=== PATIENT | female | born 1955 | race Caucasian/White ===

== ENCOUNTER 2021-02-04 00:08 | Day surgery (SDC) | payer BC, SELFPAY ==
[2021-01-22 10:54] VITALS: BMI 35.3
--- NOTE | 2021-02-03 11:34 | PM.IMHP ---
H&P: HPI History of Present Illness Date/Time: 02/03/21 11:34Pt presents with left elbow pain that has been worsening over the recent months. Pt states her pain originated at the lateral elbow-region. Her pain is now radiating up into the deltoid-region and the posterior shoulder/neck. Her pain also radiates down into the lower left arm. She states all of the fingers on her left hand are numb/tingling, constantly. Her pain is exacerbated with driving/typing. This pain does wake her from sleep. She is wearing an OT wrist brace, which does help with her discomfort. She has a hx of a fracture to the radius/ulna, which required surgery, including an external fixator. In 2019 she was dx with a slipped disc in her cervical neck. She has not received treatment for that condition. Her ROM is currently slightly limited and painful. She takes Tylenol occasionally, for her pain. Chief Complaint: LEFT ELBOW AND HAND PAIN Review of Systems Review of Systems: All systems reviewed & are unremarkable except as noted in HPI and below Eyes: Eyes: Reports no additional eye complaints ENT: Reports system reviewed and no additional complaints, except as documented Gastrointestinal: Gastrointestinal: Reports no additional gastrointestinal complaints Genitourinary: Genitourinary: Reports no additional female genitourinary complaints Musculoskeletal: Musculoskeletal: Reports no additional musculoskeletal complaints Neurologic: Reports system reviewed and no additional complaints, except as documented [facility] Past Medical History Medical History Achilles tendinitis of right lower extremity Exostosis of right calcaneus Family History Family History Other Family history of cardiovascular disease Family history of malignant neoplasm Social History Social History Smoking packs per day: 0.5 Smoking cigarettes per day: 10.0 Years smoked: 20 Smoking pack-years: 10.00 Smoking status: Current every day smoker Tobacco type: cigarettes Alcohol intake: current Substance use: never Additional living arrangements comments: HUSB Spiritual care concerns: No Meds Home Medications and Allergies Home Medications Medication Instructions Recorded Confirmed Type betamethasone, augmented 1 applic TOPICAL BID PRN 01/22/21 01/22/21 History ergocalciferol (vitamin D2) 1,250 mcg PO WEEKLY 01/22/21 01/22/21 History Allergies Allergy/AdvReac Type Severity Reaction Status Date / Time No Known Allergies Allergy Verified 01/22/21 10:49 Exam Extrem: Left upper extremity: normal to inspection, full ROM, normal capillary refill, no joint enlargement, shoulder/upper arm inspection abnormal, tenderness, axillary nerve sensory function normal and normal ROM; no abrasions, no lacerations, no ecchymosis, no crepitus and no deformity, elbow/forearm tenderness of the medial epicondyle (CUBITAL TUNNEL), normal ROM and distal pulses intact; no swelling, no abrasions, no lacerations, no ecchymosis and no crepitus, wrist tenderness of the volar wrist, normal vascular exam, radial pulse present and ulnar pulse present and hand normal to inspection, normal capillary refill, neurosensory exam abnormal Details: ulnar nerve sensory function abnormal Details: decreased light touch sensation, vascular exam radial pulse present, ulnar pulse present and normal capillary refill; no cyanosis and normal ROM of fingers; no cyanosis and no edema Assessment and Plan Additional Plan ELKE IS SCHEDULED FOR LEFT CUBITAL TUNNEL AND CARPAL TUNNEL RELEASE. SHE IS CURRENTLY STILL SYMPTOMATIC. SHE CONTINUES TO HAVE PAIN. WE DISCUSSED SURGERY IN DETAIL PRIOR TO SCHEDULING. SHE WOULD LIKE TO PROCEED
--- NOTE | 2021-02-03 11:50 | WPDHPUPDATE1 ---
History and Physical Update Update Date/Time: 02/03/21 11:50 History and Physical has been reviewed, including an updated exam of the patient. There are NO changes in the patient's condition. Risks, benefits, and alternatives have been discussed and questions answered. Patient agrees to proceed with procedure.
[2021-02-04] VITALS (12 sets, daily range): BP systolic 110–144; BP diastolic 54–81; PULSE 44–73; RESP 12–16; TEMP 36.2–36.6; O2SAT 94–100
--- NOTE | 2021-02-04 10:33 | WPDHPUPDATE1 ---
History and Physical Update Update Date/Time: 02/04/21 10:33 History and Physical has been reviewed, including an updated exam of the patient. There are NO changes in the patient's condition. Risks, benefits, and alternatives have been discussed and questions answered. Patient agrees to proceed with procedure.
[2021-02-04] MEDS: ACETAMINOPHEN 500 MG TABLET 1000 MG PO (10:59)
[2021-02-04] MEDS: CELECOXIB 200 MG CAPSULE PO (11:00)
[2021-02-04] MEDS: LACTATED RINGERS 1,000 ML 30 ML IV CONT ×2 (11:02→14:09)
--- NOTE | 2021-02-04 11:56 | WPDANESEPPF ---
Anes - Initial Pre Proc Eval Procedure: Operation Date: 02/04/21 12:30 Proposed Procedures p Left Carpal Tunnel Release, Left Cubital Tunnel Release - Martin Adrian MD Date/Time: 02/04/21 11:56 Surgeon: Martin Adrian MD Pre Op Diagnosis: left cubital and left carpal tunnel syndrome Patient Data Age: 65 Gender: F Height: 1.52 m Weight: 80.85 kg Last Vital Signs Temp 36.6 C 02/04/21 10:41 Pulse 63 02/04/21 10:41 Resp 16 02/04/21 10:41 BP 113/79 02/04/21 10:41 Pulse Ox 97 02/04/21 10:41 Allergies Allergy/AdvReac Type Severity Reaction Status Date / Time No Known Allergies Allergy Verified 02/04/21 10:44 Home Medications Medication Instructions Recorded Confirmed Type betamethasone, augmented 1 applic TOPICAL BID PRN 01/22/21 01/22/21 History ergocalciferol (vitamin D2) 1,250 mcg PO WEEKLY 01/22/21 02/04/21 History rosuvastatin 10 mg PO DAILY 02/04/21 02/04/21 History Patient hx anesthesia problems: other (slow to awaken) Family hx anesthesia problems: none PMFSH Past Medical History Medical History Achilles tendinitis of right lower extremity Exostosis of right calcaneus Hyperlipidemia JUANI (obstructive sleep apnea) Family History Family History Other Family history of cardiovascular disease Family history of malignant neoplasm Social History Social History Smoking packs per day: 0.5 Smoking cigarettes per day: 10.0 Years smoked: 20 Smoking pack-years: 10.00 Smoking status: Current every day smoker Tobacco type: cigarettes Alcohol intake: current Substance use: never Living arrangements: with family Additional living arrangements comments: HUSB Spiritual care concerns: No Anes - Eval Final PreProcedure Day of Procedure 02/04/21 11:56 Patient weight: obese Heart: regular rate and rhythm Lungs: decreased breath sounds Airway: Mallampati scale class II Neurological: alert and oriented Last oral intake: >/= 8 hours ASA classification: III Emergent: no Anesthetic plan: proceed Anesthesia type and monitoring: general LMA and standard monitoring Informed Consent: The patient's anesthetic plan and its attendant risks and benefits were discussed with the patient/family/POA. Questions were solicited and answers provided to the satisfaction of the patient/family/POA.
[2021-02-04] MEDS: ceFAZolin 2 GM/D5W 50 ML 2 GM/50 ML BAG IVPB (12:38)
--- NOTE | 2021-02-04 14:35 | W.PM.PROC2 ---
Procedure Note - Detailed Date of Procedure 02/04/21 Pre-op Diagnosis left cubital and left carpal tunnel syndrome Post-op Diagnosis same Procedure Performed LEFT CUBITAL TUNNEL RELEASE AND LEFT CARPAL TUNNEL RELEASE Surgeon Martin Adrian MD Anesthesia general Description of Procedure THE PATIENT WAS TAKEN TO THE OPERATING ROOM AND PLACED UNDER GENERAL ANESTHESIA.THE LEFT UPPER EXTREMITY WAS PREPPED AND DRAPED IN THE STERILE FASHION. THE TOURNIQUET WAS INFLATED. THE CUBITAL TUNNEL WAS IDENTIFIED AT THE MEDIAL EPICONDYLE AND OLECRANON. AN INCISION WAS MADE THROUGH THE SKIN AND THROUGH THE SUBCUTANEOUS TISSUE UNTIL THE FASCIA WAS IDENTIFIED. THE ULNAR NERVE WAS PALPATED UNDER THE FASCIA. DISSECTION CONTINUED TILL THE ULNAR NERVE WAS IDENTIFIED AND THE RELEASE WAS PREFORMED BOTH PROXIMALLY TO DISTALLY TO THE LEVEL OF THE FCU FASCIA. ONCE THE RELEASE WAS COMPLETE THE WOUND WAS WASHED AND THEN APPROXIMATED IN MULTIPLE LAYERS. THE SKIN WAS THEN CLOSED WITH DERMABOND. NEXT, THE CARPAL TUNNEL WAS IDENTIFIED AND MARKED FROM THE FLEXED RING FINGER. AN INCISION WAS MADE AT THE MID PALM DOWN THROUGH THE SUBCUTANEOUS TISSUES. THE PALMAR FASCIA WAS IDENTIFIED. AN INCISION WAS MADE THROUGH THE PALMAR FASCIA UNTIL THE CARPAL TUNNEL WAS ENTERED. A MOSQUITO HEMOSTAT WAS USED TO PROTECT THE MEDIAN NERVE WHILE THE INCISION TO THE PALMAR FASCIA WAS COMPLETED PROXIMALLY AND DISTALLY TO THE CARDINAL LINE. NEXT, THE TRANSVERSE CARPAL LIGAMENT WAS IDENTIFIED. A FRIER ELEVATOR WAS USED TO SEPARATE THE NERVE FROM THE LIGAMENT. A METZENBAUM SCISSORS WAS THEN USED TO INCISE THE TRANSVERSE CARPAL LIGAMENT UNTIL THERE WAS A COMPLETE RELEASE OF THE CARPAL TUNNEL. THE MEDIAN NERVE WAS INTACT. THE TOURNIQUET WAS DEFLATED. THE BLEEDERS WERE CAUTERIZED. THE WOUND WAS WASHED. THE SKIN WAS APPROXIMATED WITH 4-0 NYLON SUTURE. STERILE DRESSING WAS APPLIED TO BOTH WRIST AND ELBOW. PATIENT WAS EXTUBATED AND SENT TO THE RECOVERY ROOM. Estimated Blood Loss 5 Complications No immediate complications Condition stable Disposition PACU
[2021-02-04] MEDS: fentaNYL CITRATE INJ (*CRX) 100 MCG/2 ML VIAL 25 MCG IV PUSH ×4 (14:37→14:53)
[2021-02-04] MEDS: oxyCODONE HCL (*CRX) 5 MG TAB IR PO (15:20)
== END 2021-02-04 16:41 | disposition home or self-care (01) ==
PROVIDERS: PCP Emergency Medicine; Visit Provider Orthopaedic Surgery
PROC: (CPT 64721; principal; 2021-02-04 12:30)
DX: G56.02 Carpal tunnel syndrome, left upper limb (principal); G56.22 Lesion of ulnar nerve, left upper limb; G47.33 Obstructive sleep apnea (adult) (pediatric); E78.5 Hyperlipidemia, unspecified; F17.210 Nicotine dependence, cigarettes, uncomplicated; E66.9 Obesity, unspecified; Z68.34 Body mass index [BMI] 34.0-34.9, adult
CPT/HCPCS: 64721; 64718; A9270; J0690; J1100; J2250; J2405; J2704; J3010; J7120

== ENCOUNTER → 2021-02-13 07:30 | Outpatient (CLI) | payer BC, SELFPAY ==
--- NOTE | ~2021-02-13 | MM_ITS ---
EXAMINATION: MM screening [facility] BI w simba HISTORY: Screening TECHNIQUE: Craniocaudal and mediolateral oblique 3-D tomosynthesis images were obtained and synthetic 2-D images were generated. CAD analysis was submitted and interpreted. COMPARISON: Comparison to multiple prior studies sequentially, with oldest reviewed study dated 11/23. BREAST PARENCHYMAL COMPOSITION: There are scattered areas of fibroglandular density. FINDINGS: There are benign bilateral breast calcifications. There is no evidence of suspicious mass, calcification, or architectural distortion to suggest malignancy in either breast. There has been no suspicious interval change. IMPRESSION: 1. No mammographic evidence of malignancy. 2. Recommend routine screening mammography in one year. BI-RADS Category 2: Benign finding(s). Reviewed, dictated and finalized at location A.
== END ==
PROVIDERS: PCP Emergency Medicine; Visit Provider Emergency Medicine
DX: Z12.31 Encounter for screening mammogram for malignant neoplasm of breast (principal)
CPT/HCPCS: 77063; 77067

== ENCOUNTER → 2021-10-28 09:27 | Outpatient (CLI) | payer MEDICARE, SELFPAY ==
--- NOTE | ~2021-10-28 | XR_ITS ---
XR chest 2V DATE: 10/28/2021 09:59 INDICATION: Cough, chest pain TECHNIQUE: 2 views COMPARISON: 11/29/2016 two-view chest FINDINGS: Heart size is within normal range. No hilar or mediastinal enlargement. No pulmonary infiltrate or consolidation, pleural effusion or pulmonary vascular congestion or pneumo thorax. Degenerative spurring of the thoracic spine. Osteopenia. IMPRESSION: No active cardiopulmonary disease Reviewed, dictated and finalized at location A.
== END ==
PROVIDERS: PCP Emergency Medicine; Visit Provider Emergency Medicine
DX: R05.9 Cough, unspecified (principal); R07.89 Other chest pain; M85.88 Other specified disorders of bone density and structure, other site
CPT/HCPCS: 71046

== ENCOUNTER → 2021-12-30 06:53 | Outpatient (CLI) | payer MEDICARE, SELFPAY ==
--- NOTE | ~2021-12-30 | MR_ITS ---
EXAMINATION: MR lumbar spine wo con DATE: 12/30/2021 07:27 INDICATION: Lumbago with right-sided sciatica TECHNIQUE: Magnetic resonance imaging (MRI) of the lumbar spine was performed without intravenous con trast. Sequences included sagittal T2-weighted FSE, sagittal T2-weighted FS FSE, sagittal T1-weighted FSE, and axial T2-weighted FSE. COMPARISON: None FINDINGS: 5 degrees lumbar dextrocurvature. Sagittal alignment is normal. Unchanged 20% anterior vertebral body height loss at T11. Lumbar vertebral body heights are normal. T1 hyperintense hemangioma at T12. Sev ere disc height loss with degenerative endplate changes at L5-S1. Mild to moderate disc height loss a t L3-L4 and mild disc height loss at T10-T11, L2-L3 and L4-L5. The conus medullaris terminates at L1- L2. There is normal signal in the caudal spinal cord. Paravertebral soft tissues are unremarkable. Th e following disc levels are specifically discussed: T12-L1: The disc does not extend beyond the endplate margin. There is mild to moderate bilateral face t joint osteoarthritis. There is no neural foraminal stenosis. There is no central canal stenosis. L1-L2: Very small right foraminal zone disc protrusion. There is mild left and mild to moderate right facet joint osteoarthritis. There is minimal right neural foraminal stenosis. There is no central ca nal stenosis. L2-L3: Disc is mildly bulging. There is mild bilateral facet joint osteoarthritis. There is mild left and minimal right neural foraminal stenosis. There is mild central canal stenosis. L3-L4: Disc is mildly bulging. There is mild right and mild to moderate left facet joint osteoarthrit is. There is moderate left and mild to moderate right neural foraminal stenosis. There is mild centra l canal stenosis. L4-L5: Disc is bulging with annular fissure and superimposed small right paracentral to foraminal zon e disc fusion which narrows the right lateral recess and exerts mass effect upon the traversing right L5 nerve root. This does not appear significantly changed since the prior study. There is mild left and moderate to severe right facet joint osteoarthritis. There is moderate right and mild to moderate left neural foraminal stenosis. There is mild central canal stenosis. L5-S1: Annular fissure and disc extrusion extending from foraminal zone to foraminal zone with disc m aterial extending up to 2-3 mm cephalad and caudal to the level of the endplates. There is mild left and moderate right facet joint osteoarthritis. There is moderate right and mild to moderate left neur al foraminal stenosis. There is mild central canal stenosis. IMPRESSION: 1. Interval progression of severe lumbosacral and mild to moderate lumbar spondylosis with unchanged right paracentral to foraminal zone disc protrusion at L4-L5 which exerts mass effect upon the turner sing right L5 nerve root. Reviewed, dictated and finalized at location A. IMPRESSION: 1. Interval progression of severe lumbosacral and mild to moderate lumbar spond ylosis with unchanged right paracentral to foraminal zone disc protrusion at L4 -L5 which exerts mass effect upon the traversing right L5 nerve root.
== END ==
PROVIDERS: PCP Emergency Medicine; Visit Provider Emergency Medicine
DX: M54.41 Lumbago with sciatica, right side (principal); M47.816 Spondylosis without myelopathy or radiculopathy, lumbar region; M53.86 Other specified dorsopathies, lumbar region
CPT/HCPCS: 72148

== ENCOUNTER → 2022-01-26 12:59 | Outpatient (CLI) | payer MEDICARE, SELFPAY ==
--- NOTE | ~2022-01-26 | MR_ITS ---
EXAMINATION: MR cervical spine wo con DATE: 01/26/2022 13:32 INDICATION: Neck pain. TECHNIQUE: Magnetic resonance imaging (MRI) of the cervical spine was performed without intravenous c ontrast. Sequences included sagittal T2-weighted FSE, sagittal T2-weighted FS FSE, sagittal T1-weight ed FSE, axial MERGE, and axial T2-weighted FSE. COMPARISON: None FINDINGS: There is 6 degrees dextrocurvature of cervicothoracic spine. There is mild kyphosis of cerv ical spine. Vertebral body heights are normal. There is severely decreased disc height at C5-C6 and m ildly decreased disc height at C6-C7 and C7-T1. The spinal cord signal intensity is normal. The follo wing disc levels are specifically discussed: C2-C3: The disc does not extend beyond the endplate margin. There is no uncovertebral joint osteoarth ritis. There is ankylosis of the facet joints with mild hypertrophy. There is no neural foraminal abimbola nosis. There is no central canal stenosis. C3-C4: The disc does not extend beyond the endplate margin. There is mild bilateral uncovertebral luther nt osteoarthritis. There is ankylosis of the facet joints with severe hypertrophy. There is mild bila teral neural foraminal stenosis. There is no central canal stenosis. C4-C5: There is a central extrusion. There is moderate right and severe left uncovertebral joint oste oarthritis. There is severe bilateral facet joint osteoarthritis. There is mild right and moderate le ft neural foraminal stenosis. There is mild central canal stenosis. C5-C6: The disc is bulging. There is severe bilateral uncovertebral joint osteoarthritis. There is se jahaira bilateral facet joint osteoarthritis. There is moderate bilateral neural foraminal stenosis. The re is moderate central canal stenosis with ventral and dorsal indentation of the spinal cord. C6-C7: There is a left central extrusion. There is mild right and moderate left uncovertebral joint o steoarthritis. There is severe bilateral facet joint osteoarthritis. There is mild bilateral neural f oraminal stenosis. There is mild central canal stenosis. C7-T1: There is a central extrusion. There is moderate bilateral uncovertebral joint osteoarthritis. There is severe bilateral facet joint osteoarthritis. There is mild bilateral neural foraminal stenos is. There is mild central canal stenosis. IMPRESSION: 1. Moderate cervical spondylosis. Reviewed, dictated and finalized at location A.
== END ==
PROVIDERS: PCP Emergency Medicine; Visit Provider Emergency Medicine
DX: M54.2 Cervicalgia (principal); M47.812 Spondylosis without myelopathy or radiculopathy, cervical region
CPT/HCPCS: 72141

== ENCOUNTER → 2022-07-28 14:07 | Outpatient (CLI) | payer MEDICARE, SELFPAY ==
--- NOTE | ~2022-07-28 | MM_ITS ---
EXAMINATION: MM screening [facility] BI w simba HISTORY: Screening mammogram TECHNIQUE: Craniocaudal and mediolateral oblique 3-D tomosynthesis images were obtained and synthetic 2-D images were generated. CAD analysis was submitted and interpreted. COMPARISON: 02/13/2021, 05/14/2019, 05/01/2018 bilateral screening mammogram examinations BREAST PARENCHYMAL COMPOSITION: There are scattered areas of fibroglandular density. FINDINGS: There are scattered bilateral benign breast calcifications. There is no evidence of suspici ous mass, calcification, or architectural distortion to suggest malignancy in either breast. There stover s been no suspicious interval change. IMPRESSION: 1. No mammographic evidence of malignancy. 2. Recommend routine screening mammography in one year. BI-RADS Category 2: Benign finding(s). Reviewed, dictated and finalized at location A.
== END ==
PROVIDERS: PCP Emergency Medicine; Visit Provider Emergency Medicine
DX: Z12.31 Encounter for screening mammogram for malignant neoplasm of breast (principal)
CPT/HCPCS: 77063; 77067

== ENCOUNTER 2024-10-26 07:14 | Outpatient (CLI) | payer MEDICARE, SELFPAY ==
--- NOTE | ~2024-10-26 | MM_ITS ---
EXAMINATION: MM screening chon BI w simba HISTORY: Screening TECHNIQUE: Craniocaudal and mediolateral oblique 3-D tomosynthesis images were obtained and synthetic 2-D images were generated. CAD analysis was submitted and interpreted. COMPARISON: Comparison to multiple prior studies sequentially, with oldest reviewed study dated 11/27. BREAST PARENCHYMAL COMPOSITION: Not dense: There are scattered areas of fibroglandular density. FINDINGS: There is a new cluster of indeterminate calcifications in the lower inner quadrant of the r ight breast, middle third. There is a second cluster of indeterminate calcifications superiorly in th e right breast on MLO view, not delineated on CC view. The left breast is stable without evidence for malignancy. IMPRESSION: 1. New clusters of right breast calcifications. 2. Magnification views are recommended. BI-RADS Category 0: Incomplete: Needs additional imaging evaluation. Reviewed, dictated and finalized at location []
--- OUTSIDE RECORDS SUMMARY | 2024-10-26 07:18 | XMS_ITS | Encounter Summary ---
Author Organization [facility] Address [address] [place] [address] Care Team Providers Care Radiology Special Procedure Tech Name Role Phone Unavailable Primary Care Provider Unavailabl e Encounter Details Date Type Department Care Team (Late st Contact Info) Description 10/02/2020 Lab Requisition [facility] [address] [place] [address] Urbano Haider MD [address] [place] [address] Social History Tobacco Use Types Packs/Day Years Used Date Smoking Tobacco: Never Assessed Comments Unknown Sex and Gender Information Value Date Recorded Sex Assigned at Not on file 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 Gender Identity Not on file Sexual Orientation Not on file documented as of this encounter Plan of Treatment Not on file documented as of this encounter Procedures Procedure Name Priority Date/Time Associated Diagnosis Comments DERMATOPATHOLOGY Routine 10/01/2020 12:0 0 AM CDT documented in this encounter Results * DERMATOPATHOLOGY (10/01/2020 12:00 AM CDT) Case Report Dermatopathology Report Case: [id number] Authorizing Provider: Urbano Haider MD Collected: 10/01/2020 12:00 AM Ordering Location: [facility] Received: 10/02/2020 02:01 PM Pathologist: Alissa Villegas MD Specimens: A) - Skin, right lat knee B) - Skin, left mid pretibia C) - Skin, left upper pretibia 11:47 AM [facility] Final Diagnosis Specimen A. 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 SKIN, left mid pretibia: HYPERPLASTIC (HYPERTROPHIC) ACTINIC KERATOSIS WITH ASSOCIATED CHANGES OF PRURIGO NODULARIS (L57.0) Specimen C. SKIN, left upper pretibia: ACTINIC KERATOSIS (L57.0) STASIS DERMATITIS (L30.8) 11:47 AM [facility] at [address] [facility] Clinical History A-C: R/O SCC, eczema, ISK. 11:47 AM [facility] Gross Description Specimen A: Received is one formalin filled container labeled with the patient's name and designated right lat knee. The specimen consists of a shave biopsy measuring [id number]. Jar 0. Specimen B: Received is one formalin filled container labeled with the patient's name and designated left mid pretibia. The specimen consists of a shave biopsy measuring [id number]. Jar 0. Specimen C: Received is one formalin filled container labeled with the patient's name and designated left upper pretibia. The specimen consists of a shave biopsy measuring [id number]. Jar 0. 11:47 AM [facility] Microscopic Description Specimen A. SKIN, right lat knee: There is a dome-shaped portion of skin with psoriasiform epidermal hyperplasia, compact hyperkeratosis, and fibrosis of the papillary dermis associated with a superficial perivascular lymphohistiocytic infiltrate. Specimen B. SKIN, left mid pretibia: There is hyperkeratosis alternating with parakeratosis. There is epidermal hyperplasia with disorderly maturation of keratinocytes with nuclear pleomorphism confined to the lower half of the epidermis. There is a dome-shaped portion of skin with psoriasiform epidermal hyperplasia, compact hyperkeratosis, and fibrosis of the papillary dermis associated with a superficial perivascular lymphohistiocytic infiltrate. Specimen C. SKIN, left upper pretibia: There is focal parakeratosis. The lower half of the epidermis shows disorderly maturation of keratinocytes with nuclear pleomorphism. There is focal spongiosis. The dermis shows a sparse, perivascular lymphocytic infiltrate surrounding dilated, thick-walled vessels, which are increased in number. 11:47 AM CDT DERMATOPATHOLOGY LABORATORY Disclaimer An external and internal positive and negative controls are appropriate for the histochemical, immunohistochemical and immunofluorescence stain(s) in this case (if any), except where stated explicitly. The performance characteristics of the stain(s) cited in this report were developed and its performance characteristic determined by the Dermatopathology Laboratory at [facility], directed by Dr. Demetrius Villegas. These tests need not be, and therefore are not, approved by the [place] Food and Drug Administration. The tests are used for clinical purposes. Billing Codes Specimen Charges Stain Charges 16885 [id number] 1 1 1 1 11:47 AM CDT DERMATOPATHOLOGY LABORATORY Embedded Images 11:47 AM CDT DERMATOPATHOLOGY LABORATORY Pathology/Cytology TISSUE SPECIMEN FROM SKIN / Unknown 10/01/2020 10/02/2020 2:01 PM CDT Miscellaneous samples (specimen) TISSUE SPECIMEN FROM SKIN / Unknown 10/01/2020 10/02/2020 2:01 PM CDT Miscellaneous samples (specimen) TISSUE SPECIMEN FROM SKIN / Unknown 10/01/2020 10/02/2020 2:01 PM CDT Urbano Haider MD LAB - PATHOLOGY/CYTOLOGY ORD ERABLES Final Result DERMATOPATHOLOGY LABORATORY [facility] Department of Dermatology [address] [phone] documented in this encounter Visit Diagnoses Not on filedocumented in this encounter
--- OUTSIDE RECORDS SUMMARY | 2024-10-26 07:18 | XMS_ITS | Encounter Summary ---
Author Organization [facility] Address [address] [place] [address] Care Team Providers Care Cook'S Assistant Name Role Phone Unavailable Primary Care Provider Unavailabl e Encounter Details Date Type Department Care Team (Late st Contact Info) Description 01/27/2021 Lab Requisition [facility] [address] [place] [address] Urbano Haider MD [address] [place] [address] Social History Tobacco Use Types Packs/Day Years Used Date Smoking Tobacco: Never Assessed Comments Unknown Sex and Gender Information Value Date Recorded Sex Assigned at Not on file Legal Sex Female 8:01 AM [employer] Gender Identity Not on file Sexual Orientation Not on file documented as of this encounter Plan of Treatment Not on file documented as of this encounter Procedures Procedure Name Priority Date/Time Associated Diagnosis Comments DERMATOPATHOLOGY Routine 01/26/2021 12:0 0 AM CDT documented in this encounter Results * DERMATOPATHOLOGY (01/26/2021 12:00 AM CDT) Case Report Dermatopathology Report Case: [id number] Authorizing Provider: Urbano Haider MD Collected: 01/26/2021 12:00 AM Ordering Location: [facility] Received: 01/27/2021 01:43 PM Pathologist: Mae Caba MD Specimens: A) - Skin, right medial zygoma B) - Skin, right lateral zygoma 3:13 PM CDT DERMATOPATHOLOGY LABORATORY Final Diagnosis Specimen A. SKIN, right medial zygoma: EPIDERMAL NECROSIS SUGGESTIVE OF EXCORIATION (L98.499) (see microscopic description) Specimen B. SKIN, right lateral zygoma: ACTINIC KERATOSIS, PIGMENTED (L57.0) 1 3:13 PM [facility] [place] DERMATOP[place] LABORATORY at 1513 CDT Clinical History A: R/O AK, ISK, BCC, HAK. B: R/O pigmented AK, ISK, BCC. 3:13 PM CDT DERMATOPATHOLOGY LABORATORY Gross Description Specimen A: Received is one formalin filled container labeled with the patient's name and designated right medial zygoma. The specimen consists of a shave biopsy measuring [id number]. Jar 0. Specimen B: Received is one formalin filled container labeled with the patient's name and designated right lateral zygoma. The specimen consists of a shave biopsy measuring [id number]. Jar 0. 1 3:13 PM [facility] [place] DERMATOPATHOLOGY LABORATORY Microscopic Description Specimen A. SKIN, right medial zygoma: The epidermis is focally necrotic and covered with a scale-crust. There is fibrin at the base. There is no evidence of epithelial dysplasia or malignancy in multiple deeper sections examined. Specimen B. SKIN, right lateral zygoma: There is alternating orthokeratosis and parakeratosis. Along the undersurface of the epidermis, there are buds of atypical keratinocytes in a disorderly arrangement. There is prominent pigmentation in some of the keratinocytes. Mib-1 stain reveals proliferating keratinocytes within the lower half of the epidermis. 1 3:13 PM T DERMATOPATHOLOGY LABORATORY Disclaimer An external and internal positive and negative controls are appropriate for the histochemical, immunohistochemical and immunofluorescence stain(s) in this case (if any), except where stated explicitly. The performance characteristics of the stain(s) cited in this report were developed and its performance characteristic determined by the Dermatopathology Laboratory at [facility], directed by Dr. Demetrius Vilelgas. These tests need not be, and therefore are not, approved by the [place] Food and Drug Administration. The tests are used for clinical purposes. Billing Codes Specimen Charges Stain Charges 33703 65043 1 1 00103 1 1 3:13 PM CDT DERMATOPATHOLOGY LABORATORY Embedded Images 1 3:13 PM CDT DERMATOPATHOLOGY LABORATORY Pathology/Cytology TISSUE SPECIMEN FROM SKIN / Unknown 01/26/2021 01/27/2021 1:43 PM CDT Miscellaneous samples (specimen) TISSUE SPECIMEN FROM SKIN / Unknown 01/26/2021 01/27/2021 1:43 PM CDT Urbano Haider MD LAB - PATHOLOGY/CYTOLOGY ORD ERABLES Final Result DERMATOPATHOLOGY LABORATORY [facility] - Department of Dermatology [facility] [address] [place] [address], [address] [phone] documented in this encounter Visit Diagnoses Not on filedocumented in this encounter
--- OUTSIDE RECORDS SUMMARY | 2024-10-26 07:18 | XMS_ITS | Continuity of Care Document ---
Author Organization [facility] Address [address] [place] [address] [place] [address] Phone Care Team Providers Care Upsetter Name Role Phone Gerald Paulino MD Unavailable Unavailable Allergies, Adverse Reactions, Alerts Substance Reaction Status Criticality No Known Allergies Active No Inform ation Medications Medication Instructions Dosage Effective Dates (start - stop) Status Comments Breztri Aerosphere 160 mcg-9mcg-4.8mcg/actua tion HFA aerosol inhaler inhale 2 puff by inhalation route 2 times every day in the morning and evening 2.00 puff - Active Valtrex 1 gram tablet take 2 Tablet by o ral route every 12 hours 2000 MG - Active rosuvastatin 10 mg tablet take 1 tablet by oral route every day 10 MG - Active Pristiq 100 mg tablet,extended release take 1 tablet by oral route every day 100 MG - Active Vitamin D2 1,250 mcg (50,000 unit) capsule take 1 capsule by oral route every week - Active Procedures Procedure Date OFFICE/OUTPATIENT VISIT, EST OFFICE/OUTPATIENT VISIT, EST OFFICE/OUTPATIENT VISIT, EST OFFICE/OUTPATIENT VISIT, EST OFFICE/OUTPATIENT VISIT, EST PREV VISIT, EST, 65 & OVER OFFICE/OUTPATIENT VISIT, EST OFFICE/OUTPATIENT VISIT, EST OFFICE/OUTPATIENT VISIT, EST OFFICE/OUTPATIENT VISIT, EST OFFICE/OUTPATIENT VISIT, EST OFFICE/OUTPATIENT VISIT, EST OFFICE/OUTPATIENT VISIT, EST OFFICE/OUTPATIENT VISIT, EST PREV VISIT, EST, 65 & OVER OFFICE/OUTPATIENT VISIT, EST OFFICE/OUTPATIENT VISIT, EST PREV VISIT, EST, 65 & OVER OFFICE/OUTPATIENT VISIT, EST OFFICE/OUTPATIENT VISIT, EST PREV VISIT, EST, AGE 40-64 OFFICE/OUTPATIENT VISIT, EST OFFICE/OUTPATIENT VISIT, EST OFFICE/OUTPATIENT VISIT, EST PREV VISIT, EST, AGE 40-64 OFFICE/OUTPATIENT VISIT, EST OFFICE/OUTPATIENT VISIT, EST OFFICE/OUTPATIENT VISIT, EST OFFICE/OUTPATIENT VISIT, EST OFFICE/OUTPATIENT VISIT, EST PREV VISIT, NEW, AGE 40-64 OFFICE/OUTPATIENT VISIT, NEW Advance Directives Directive Yes / No Effective Date File Name No Information Encounters Encounter Description Practice Location Reason(s) For Visit Diagnoses Date Provider Providers Copied on Encounter [facility], [place], [address] [place], [address], tel:[phone] [facility] [place] No Information 5 Jefferson Duarte. [address] [place], [address] , [place]. tel:[phone] OFFICE/OUTPA TIENT VISIT, EST [facility] [place], [address] [place], [address], tel:[phone] [facility] DM (chief complaint) HLP (chief complaint) folate1 (chief complaint) psoriasis1 (chief complaint) COPD1 (chief complaint) HyperglycemiaMixed hyperlipidemiaCentr ilobular emphysemaFolate deficiencyPsoriasis 5 Jefferson Duarte. [address], [place], [place], [address] , [place]. [phone] OFFICE/OUTPA TIENT VISIT, [facility], [address], [place], [place], [address], tel:[phone] [facility] [place] HLP (chief complaint) psoriasis1 (chief complaint) cough1 (chief complaint) eye surgery1 (chief complaint) fever blister1 (chief complaint) Mixed hyperlipidemiaHerpe s simplex labialisGeneralized Anxiety DisorderCentrilobul ar emphysemaMechanical ptosis of bilateral eyelidsOsteopeniaEn counter for oth screening for malignant neoplasm of breastPsoriasis 5 Jefferson Alfredo [address], [place], [place], [address] , [place]. [phone] OFFICE/OUTPA TIENT VISIT, [facility], [address], [place], [place], [address], [place] tel:[phone] [facility] [place] anxiety1 (chief complaint) HLP (chief complaint) cold sore1 (chief complaint) weight1 (chief complaint) Generalized Anxiety DisorderMixed hyperlipidemiaAbnor mal weight lossHerpes simplex labialis 4 Jefferson Alfredo [address], [place], [place], [address] , [place]. [phone] OFFICE/OUTPA TIENT VISIT, [facility], [address], [address], [place] tel:[phone] [facility] [place] weight1 (chief complaint) Abnormal weight gain 4 Jefferson Duarte. [address], [place], [place], [address] , [place]. tel:[phone] OFFICE/OUTPA TIENT VISIT, [facility], [address], [place], [place], [address], [place] tel:[phone] [facility] [place] anxiety1 (chief complaint) HLP (chief complaint) glucose1 (chief complaint) folate (chief complaint) Mixed hyperlipidemiaGener alized Anxiety DisorderFolate deficiencyHyperglyc emia 4 Jefferson Duarte. [address], [place], [place], [address] , [place]. tel:[phone] PREV VISIT, EST, 65 & OVER [facility] [place], [address], [place], [place], [address], [place] tel:[phone] [facility] physical (chief complaint) Encounter for general adult medical exam w abnormal findingsMixed hyperlipidemiaOther specified disorder of bone densityOther age-related cataractGeneralized Anxiety Disorder 4 Jefferson Duarte. [address], [place], [place], [address] , [place]. tel:[phone] OFFICE/OUTPA TIENT VISIT, [facility], [address], [place], [place], [address], [place] tel:[phone] [facility] [place] COVID (chief complaint) Viral infection 3 Jefferson Gerald. [address], [place], [place], [address] , [place]. tel:[phone] OFFICE/OUTPA TIENT VISIT, [facility], [address], [place], [place], [address], [place] tel:[phone] [facility] [place] HLP (chief complaint) polycyherm ia1 (chief complaint) sleep apnea1 (chief complaint) rash1 (chief complaint) back pain1 (chief complaint) Mixed hyperlipidemiaPsori asisPrimary central sleep apneaChronic pain syndromeSecondary polycythemia 2 Paulino Gerald. [address], [place], [place], [address] , [place]. tel:[phone] OFFICE/OUTPA TIENT VISIT, [facility], [address], [place], [place], [address], [place] tel:[phone] [facility] [place] pain (chief complaint) HLP (chief complaint) sick (chief complaint) Mixed hyperlipidemiaAcute bronchitisHerpes simplex infectionLumbago with sciatica, right side 2 Jefferson Gerald. [address], [place], [place], [address] , [place]. tel:[phone] OFFICE/OUTPA TIENT VISIT, [facility], [address], [place], [place], [address], [place] tel:[phone] [facility] [place] neck pain1 (chief complaint) Lumbago with sciatica, right sideOther spondylosis, cervical region 2 Jefferson Gerald. [address], [place], [place], [address] , [place]. tel:[phone] OFFICE/OUTPA TIENT VISIT, [facility], [address] [place], [address], [place] tel:[phone] [facility] [place] back pain1 (chief complaint) itching1 (chief complaint) HLP (chief complaint) Other specified epidermal thickeningLumbago with sciatica, right sideCervicalgiaTens ion headacheMixed hyperlipidemia 2 Jefferson Gerald. [address], [place], [place], [address] , [place]. tel:[phone] OFFICE/OUTPA TIENT VISIT, [facility], [address], [place], [place], [address], [place] tel:[phone] [facility] [place] folate1 (chief complaint) back pain1 (chief complaint) cough1 (chief complaint) Folate deficiencyMixed hyperlipidemiaSecon jorge polycythemiaAcute coughLumbago with sciatica, right side 2 Jefferson Gerald. [address], [place], [place], [address] , [place]. tel:[phone] OFFICE/OUTPA TIENT VISIT, [facility], [address] [place], [address], [place] tel:[phone] [facility] [place] cough1 (chief complaint) fever blister (chief complaint) Chronic coughAllergic rhinitisHerpes simplex infection NOS 2 Jefferson Gerald. [address], [place], [place], [address] , [place]. tel:[phone] PREV VISIT, EST, 65 & OVER [facility] [place], [address], [place], [place], [address], [place] tel:[phone] [facility] physical (chief complaint) Encounter for general adult medical exam w abnormal findingsHyperlipide miaOther disorders of phosphorus metabolismPolyp of colonAcute bronchitisSleep apnea 2 Jefferson Duarte. [address], [place], [place], [address] , [place]. tel:[phone] OFFICE/OUTPA TIENT VISIT, EST [facility] [place], [address], [place], [place], [address], [place] tel:[phone] [facility] [place] HLP (chief complaint) folate (chief complaint) phos1 (chief complaint) glucose1 (chief complaint) colon polyp1 (chief complaint) HyperlipidemiaPolyp of colonFolate deficiencyHyperglyc emiaOther disorders of phosphorus metabolism 1 Jefferson Alfredo [address], [place], [place], [address] , [place]. tel:[phone] Referring Provider: N[address], [place], [place], [address]. tel:[phone] PREV VISIT, EST, 65 & OVER [facility] [place], [address], [place], [place], [address], [place] tel:[phone] [facility] [place] physical (chief complaint) Encounter for general adult medical exam w abnormal findingsCarpal tunnel syndrome, left upper limbEdemaPolyp of colonHyperlipidemia Squamous cell carcinoma of skin, unspecifiedHerpes simplex labialisOther specified disorder of bone densitySleep apneaGeneralized Anxiety Disorder 1 Jefferson Alfredo [address], [place], [place], [address] , [place]. tel:[phone] Referring Provider: N[address], [place], [place], [address]. tel:[phone] OFFICE/OUTPA TIENT VISIT, [facility], [address], [place], [place], [address], [place] tel:[phone] [facility] sick (chief complaint) Acute sinusitisAcute bronchitis 9 Jeffesron Duarte. [address], [place], [place], [address] , [place]. tel: [phone] Referring Provider: Noreen Sal[address], [place], [place], [address]. tel:[phone] PREV VISIT, EST, AGE 40-64 [facility] [place], [address], [place], [place], [address], [place] [phone] [facility] Physical (chief complaint) Encounter for general adult medical exam w abnormal findingsHyperlipide miaAbnormal weight gainPain in right footOther specified disorder of bone densityGeneralized Anxiety Disorder 9 Jefferson Duarte. [address], [place], [place], [address] , [place]. [phone] Referring Provider: Noreen Sal[address], [place], [place], [address]. tel:[phone] OFFICE/OUTPA TIENT VISIT, EST [facility] [place], [address], [place], [place], [address], [place] tel:[phone] [facility] [place] anxiety1 (chief complaint) lumbago1 (chief complaint) weight (chief complaint) HLP (chief complaint) HyperlipidemiaAbnor mal weight gainLumbago with sciatica, right sideDepression 9 Jefferson Duarte. [address], [place], [place], [address] , [place]. [phone] Referring Provider: N[address]en [address], [place], [place], [address]. tel:[phone] OFFICE/OUTPA TIENT VISIT, EST [facility] [place], [address], [place], [place], [address], [place] tel:[phone] [facility] weight1 (chief complaint) fever blisters1 (chief complaint) back pain1 (chief complaint) Chronic pain syndromeOther specified disorder of bone densityHerpes simplex infection NOSBody mass index (BMI) 33.0-33.9, adult 8 Jefferson Duarte. [address], [place], [place], [address] , [place]. [phone] Referring Provider: Noreen Salazar [address], [place], [place], [address]. tel:[phone] PREV VISIT, EST, AGE 40-64 [facility] [place], [address], [place], [place], [address], [place] [phone] [facility] PHysical (chief complaint) Encounter for general adult medical exam w abnormal findingsSleep apneaAbnormal weight gainOther specified disorder of bone densityChronic pain syndrome 8 Jefferson Alfredo [address], [place], [place], [address] , [place]. [phone] Referring Provider: Noreen Salazar [address], [place], [place], [address]. tel:[phone] OFFICE/OUTPA TIENT VISIT, EST [facility] [place], [address], [place], [place], [address], [place] tel:[phone] [facility] [place] heel pain1 (chief complaint) tobacco1 (chief complaint) back pain1 (chief complaint) knee1 (chief complaint) anxiety1 (chief complaint) Achilles bursitis of legLumbago with sciatica, right sideGeneralized Anxiety DisorderPresence of artificial knee joint, bilateralTobacco use 8 Jefferson Alfredo [address], [place], [place], [address] , [place]. [phone] Referring Provider: N[address]en Sal[address], [place], [place], [address]. tel:[phone] OFFICE/OUTPA TIENT VISIT, EST [facility] [place], [address], [place], [place], [address], [place] tel:[phone] [facility] back pain1 (chief complaint) HLP (chief complaint) colon polyp (chief complaint) osteopenia 1 (chief complaint) Lumbago with sciatica, right sidePolyp of colonHyperlipidemia Sleep apneaBody mass index (BMI) 29.0-29.9, adultOther specified disorder of bone density 8 Jefferson Alfredo [address], [place], [place], [address] , [place]. tel:[phone] Referring Provider: Noreen Salazar [address], [place], [place], [address]. tel:[phone] OFFICE/OUTPA TIENT VISIT, [facility], [address], [place], [place], [address], [place] tel:[phone] [facility] [place] back pain1 (chief complaint) anxiety1 (chief complaint) colon polyp1 (chief complaint) sleep apnea1 (chief complaint) Polyp of colonLumbago with sciatica, right sideGeneralized Anxiety DisorderSleep apnea 7 Jefferson Alfredo [address], [place], [place], [address] , [place]. [phone] Referring Provider: Noreen Sal[address], [place], [place], [address]. tel:[phone] OFFICE/OUTPA TIENT VISIT, [facility], [address], [place], [place], [address], [place] tel:[phone] [facility] [place] osteopenia 1 (chief complaint) HLP (chief complaint) back pain1 (chief complaint) colon polyp1 (chief complaint) Lumbago with sciatica, right sidePolyp of colonOther specified disorder of bone densityHyperlipidem ia 7 Jefferson Alfredo [address], [place], [place], [address] , [place]. tel:[phone] Referring Provider: Noreen Sal[address], [place], [place], [address]. tel:[phone] PREV VISIT, NEW, AGE 40-64 [facility] [place], [address], [place], [place], [address], tel:[phone] [facility] physical (chief complaint) Encounter for general adult medical exam w abnormal findingsLumbago with sciatica, right sideSleep apneaPolyp of colon 0-201 7 Paulino Gerald. [address], [place], [place], [address] , [place]. [phone] Family History Family Member Type Diagnosis Age At Onset Mother Problem (finding) Brother Problem (finding) Alive and well Father Problem (finding) Father Problem (finding) colon CA 50 Mother Problem (finding) Coronary artery disease 75 Father Problem (finding) of asbestos poison ing 78 Payers Payer name Insurance type Covered alliance party ID Charles hope(s) [facility] [id number] Social History Type Description Quantity Date Captured Comments Sex Female Smoking Status No Information Chief Complaint And Reason For Visit No Information Plan Of Treatment Date Type Action Status Goal Tobacco cessation counseling completed Goal Special diet education compl eted Goal Tobacco cessation counseling completed Goal Special diet education compl eted Goal Special diet education compl eted Goal Tobacco cessation counseling completed Goal Tobacco cessation counseling completed Goal Special diet education compl eted Goal Special diet education compl eted Goal Special diet education compl eted Goal Special diet education compl eted Goal Prescribed dietary intake co mpleted Goal Prescribed diet education co mpleted Goal Prescribed dietary intake co mpleted Referral Ordered: Dermatology (related to Psoriasis) ordered Referral Referred To: Betzaida Riddle MD [address] [place], [place], [address] Ordered: Referrals: Betzaida Riddle MD. Evaluate and treat ordered Referral Ordered: Referrals: Dermatology. Evaluate and treat ordered Referral Ordered: MRI NECK SPINE W/O DYE ordered Referral Referred To: Marjan ALTAMIRANO, [facility] Jamin Barr
[place], [address] Ordered: Referrals: Richard. Phillip MD Evaluate and treat ordered Referral Ordered: Physical Therapy (related to Lumbago with sciatica, right side) ordered Referral Referred To: Physical Therapy Ordered: Referrals: Referrals: Physical Therapy. Evaluate and treat Physical Therapy. Evaluate and treat ordered Referral Ordered: CHEST X-RAY PA/LAT TWO-VIEWS ordered Referral Ordered: [facility] -[facility] Medicine [facility] Surgery Service Providers : Machining Supervisor (related to Encounter for general adult medical exam w abnormal findings) ordered Referral Referred To: [facility] [address] [place], [place], [phone] Ordered: Referrals: Podiatric Medicine & Surgery Service Providers : Machining Supervisor. [facility]. Evaluate and treat ordered Referral Ordered: Pain Medicine (related to Lumbago with sciatica, right side) ordered Referral Ordered: Referrals: Pain Medicine. Evaluate and treat ordered Referral Ordered: Neurosurgery (related to Lumbago with sciatica, right side) ordered Referral Ordered: COLONOSCOPY AND BIOPSY ordered Referral Ordered: Referrals: Neurosurgery. Evaluate and treat ordered Referral Ordered: MAMMOGRAM, SCREENING ordered Referral Ordered: MRI LUMBAR SPINE W/O DYE ordered Referral Ordered: DXA BONE DENSITY, AXIAL ordered History Of Present Illness Encounter Date Complaint History Of Prese nt Illness DM Pt stover high gluco se. Pt denies any polyuria, polydipsia . HLP Pt has HLP Pt marcus khan. Her lipid profile is ok. Her TG is borderline high folate Pt has low folat e . psoriasis Pt has diffuse p soriasis. She sees draw bench operator helper but treatment so far is ineffective. pt never had biopsy done before. pt does have positive SPEEDY and RA Pt denies any joint pain COPD Pt has chronic s ob. Pt started breztri which is helping her breathing . HLP pt has HLP Pt ta kes crestor Pt denies any myalgia psoriasis1 pt has chronic d iffuse itching with skin open sores. Pt is seeing dermatology and she was told that she has psoriasis and she is on dupixent . Pt states that she scratches all the time due to skin itching and she has multiple open sores with pain and itching. cough1 pt c/o chronic c ough ,worse at night with some clear phlegm for several months Pt denies any hemoptysis, sob. Pt denies any wheezing .Pt is smoking again. eye surgery1 Pt has bilateral droopy eyelid and she will have blepharoplasty soon and she needs clearance. Pt will do surgery with MAC fever blister1 pt has recurrent fever blisters around lips. pt needs valtrex refilled cold sore1 Pt c/o recurrent cold sore around lower lip recently ,Pt wants some valtrex Pt started to have cold sore since two days ago HLP Pt has HLP Pt marcus khan and tolerating it ok Pt denies any myalgia anxiety1 Pt has chronic a nxiety and depression Pt doing well with pristiq Pt denies any suicidal or homicidal thought Pt denies any crying spells. Pt needs pristiq refilled . weight1 Pt started phent ermine 2 months ago and she is only taking half of the phentermine due to feeling of overstimulating with 37.5 mg phentermine Pt denies any chest pain or palpitation or headache Pt has mild dry mouth Pt lost 10 pounds. Pt notices appetite suppression weight1 Pt is obese .her BMI is 34 .Pt failed diet and exercise Pt tried phentermine several years ago which worked slightly pt is interested in GLP-1 anxiety1 Pt has chronic a nxiety and depression Pt doing much better with pristiq. Pt feels less sad and less crying Pt denies any suicidal or homicidal thought Pt denies any side effects with pristiq HLP Pt has HLP Pt is not on any statin glucose1 Pt has borderlin e high glucose Pt denies any polyuria, polydipsia . folate Pt has low folat e physical Pt needs annual physical pt has HLP but she is noncompliant with crestor . Pt has osteopenia. Pt takes calcium and D Pt denies any fracture Pt has severe anxiety and depression Pt sees psychiatry and she is on zoloft 50 mg daily now but does not seem to help .Pt has frequent crying spells. Pt denies any suicidal or homicidal thought Pt has difficulty leaving her house due to severe grieving since her pass several months ago. Pt has psoriasis and she is seeing dermatology and she is on otezla. Pt has bilateral cataract and she will have cataract surgery soon and she needs clearance. Pt denies any other complaints. COVID Pt contracted [place] VID-19 since yesterday. Pt c/o mild fever, dry cough, sore throat, fatigue, sinus congestion, very mild sob. She is uptodate with COVID boosters. her contracted COVID two days ago. sleep apnea1 Pt has sleep paint line operator ea. Pt does not want to use cpap. Pt denies any fatigue rash1 Pt has diffuse s froylan appearing brownish macular papular rash on body with dry skin and itching. Pt is seeing dermatology and had biopsy but was inconclusive. pt was told that she may have psoriasis. Pt is on otzela and steroid topical but she has not noticed any improvement of the rash back pain1 Pt has chronic l ow back pain with sciatica. Pt denies any loss of bowel or bladder control or saddle area paresthesia. Pt is on neurontin. Pt is not surgical candidate .Pt needs handicap parking permit polycyhermia1 Pt has polycythe rubina.. Pt had lab done but results not available yet. HLP Pt has HLP Pt is off crestor per dermatology. Pt has some skin rash and is being worked on by dermatology and her draw bench operator helper temporarily took her off Crestor sick Pt c/o acute ons et of persistent dry cough, fever blisters, sinus congestion, postnasal drainage, achy, myalgia, joint pain for 3 days. Pt denies any fever, sob or sick contact. Pt is fully vaccinated with COVID and boosted. Pt denies any chest pain. HLP Pt has HLP. Pt t manuel jacksonor and she denies any myalgia, Pt has not done lab yet pain Pt has chronic l ow back pain with right sciatica down to right buttock and radiating down to right leg and foot for several years, but seems worse during last several months. pt denies any loss of bowel or bladder control Pt denies any saddle area paresthesia. pt notices burning feeling behind right calf and right thigh and to posterior right heel area. MRI showed progression of severe lumbar spondylosis with right L5 neve compression. Pt was evaluated by neurosurgery recently and was told that she is not surgical candidate. Pt states that neurontin does help neck pain1 Pt c/o persisten t neck pain with muscle tightness. Pt notices mild radiation of pain to upper shoulder. Pt had MRI done which showed moderate cervical spondylosis. Pt also has some tension headache sometimes. Pt has chronic low back pain with right sciatica Pt does have Lumbar spine disc protrusion. Pt has georgette with neurosurgeon in 3 weeks. Pt denies any loss of bowel or bladder control or saddle area paresthesia. HLP Pt tolerating cr estor ok. Pt denies any myalgia itching1 Pt c/o acute ons et of bilateral upper arm itching with small bumps since one week ago. Pt also notices mild itching rest of body without any rash. Pt denies any inner thigh or pubic itching Pt states that she mainly itches around crease area of elbow and both upper arm. Pt denies any sick contact. Pt also notices chronic neck pain as well. Pt states that she occasionally notices numbness and tingling down to both arm. Pt denies any weakness. Pt states that she has neck pain since 2 months ago. pt denies any neck injury Pt has been noticing tension headache from neck pain back pain1 Pt has chronic l ow back pain with right sciatica down to right buttock and radiating down to right leg and foot for several years, but seems worse during last several weeks pt denies any loss of bowel or bladder control Pt denies any saddle area paresthesia. pt notices burning feeling behind right calf and right thigh and to posterior right heel area. MRI showed progression of severe lumbar spondylosis with right L5 neve compression. back pain1 Pt has chronic l ow back pain with right sciatica down to right buttock and radiating down to right leg and foot for several years, but seems worse during last several weeks pt denies any loss of bowel or bladder control Pt denies any saddle area paresthesia. pt notices burning feeling behind right calf and right thigh and to posterior right heel area. folate1 Pt has low folat e on lab. Pt has mild dust allergy pt has HLP and mild polycythemia. Pt has sleep apnea but she does not use cpap. Pt could not tolerate cpap. pt denies any fatigue Pt does have a lot 2nd hand smoking exposure currently cough1 Pt states that h er cough resolved. Pt had negative chest x ray. Pt took singulair and prednisone which did help. pt has mild dust mite allergy cough1 Pt c/o postnasal drainage, productive cough with green and clear phlegm x 3 weeks. Pt denies any sob, or chest pain or fever. Pt is fully vaccinated for COVID with two additional boosters. Pt denies any hemoptysis. Pt denies any calf pain. Pt tried and failed OTC meds. Pt states that she coughs all night and she can not fall asleep. Pt denies any chest pain. Pt denies any sinus congestion. Pt does sneeze frequently. Pt states that she has above bouts of cough every year, pt denies any calf pain Pt denies any sob. Pt notices occasional wheezing fever blister Pt has recurrent fever blister, Pt denies any acute symptoms Pt wants some valtrex to use PRN physical Pt needs annual physical. Pt has HLP Pt took crestor for 3 months and she just stopped it and she never did lab work. Pt has high phos and osteopenia. Pt takes calcium and D Pt needs vitamin D refilled. Pt had colonoscopy done recently which showed ? tubular adenoma and she was told to repeat in 5 years. Pt denies any GI issue. Pt c/o postnasal drainage, productive cough with green phlegm x two weeks. Pt denies any sob, or chest pain or fever. Pt is fully vaccinated for COVID with two additional boosters. Pt denies any hemoptysis. Pt denies any calf pain. Pt tried and failed OTC meds. Pt states that she coughs all night and she can not fall asleep. Pt denies any chest pain HLP Pt has HLP. Pt c urrently is not on any statin .Pt does have family history of CAD Pt denies any chest pain folate Pt has low folat e. Pt does not eat a lot of green leafy vegetables. phos1 Pt has high phos . Pt denies any muscle cramp or any paresthesia. glucose1 Pt has borderlin e high glucose. Pt denies any polyuria, ,polyuria . colon polyp1 Pt has hyperplas tic colon polyp on colonoscopy 2016. Pt denies any GI issue Pt has georgette with GI in two weeks to discuss colonoscopy physical Pt needs annual physical Pt has HLP Pt stopped crestor long time ago. Pt has osteopenia .Pt takes calcium and D. Pt denies any fx. Pt no longer has anxiety and depression and she weaned herself off zoloft. and she is doing ok. Pt has left carpal tunnel and she will do surgery soon Pt needs surgical clearance. 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 Pt notices mild LE edema recently. Pt denies any sob or chest pain pt denies any orthopnea or PND. Pt sometimes has oral cold sore and she wants some valtrex PRN. Pt denies any other complaints sick Pt c/o productiv e coughing with green phlegm, sinus congestion, purulent sinus drainage, postnasal drainage for 5 weeks pt denies any fever, chill pt tried OTC meds but did not work, Pt denies any headache, chest pain or sob, Pt has difficulty sleeping at night due to coughing, Pt denies any calf pain Pt denies any recent travel or bedrest Physical Pt needs annual physical pt has HLP pt is noncompliant with crestor. Pt denies any myalgia Pt has not done lab yet. Pt low chronic low back pain Pt has mild sciatica Pt denies any loss of bladder control Pt has not done MRi of back either. Pt states that her back pain is getting better. Pt states that she took phentermine and she lost some weight but she gained everything back again Pt denies any chest pain or headache with phentermine Pt wants to try phentermine again. Pt c/.o posterior right heel pain for several months Pt denies any injury. pt denies any numbness or tingling. Pt denies any calf pain Pt denies any recent travel. Pt has sharp pain all the time Pt failed PT. Pt notices some sharp pain radiating to right calf sometimes from the distal right ankle pt denies any recent travel or bedrest Pt denies any chest pain or sob. Patient has chronic anxiety and depression. Patient takes Zoloft the okay. Patient denies any suicidal homicidal thought. Patient denies any crying spells. anxiety1 Pt has chronic a nxiety and depression. Pt states that she is feeling much better now in terms of mood. Pt stopped wellbutrin on her own several months ago. pt takes zoloft daily but she is not sure if she needs to take it daily anymore. her mood is much better now. Pt wants to wean off lumbago1 Pt has chronic l ow back pain with right sciatica. Pt denies any loss of bladder control. Pt states that her low back pain has been worse lately. Pt has numbness down to right upper leg. Pt denies any calf pain. Pt has 7/10 pain daily. weight Pt wants to try phentermine. Pt did not really lose much weight last time but she did feel more energy and more motivated to lose weight. Pt denies any chest pain or headache with phentermine HLP Pt has persisten t HLP. Pt is not on any diet weight1 Pt states that s he felt great while on phentermine. Pt actually lost some weight with phentermine. Pt denies any side effects Pt wants to continue fever blisters1 Pt has fever bli sters and she takes valtrex PRn. Pt denies any acute symptoms. Pt has about once per month during winter times. Pt denies any acute symptmos back pain1 Pt has chronic l ow back pain due to DDD. Pt denies any worsening pain Pt denies any loss of bladder control. Pt failed PT. Pt failed NSAID and ultram PHysical Pt needs annual physical Pt quit smoking recently and she gained 20 pounds during last two months Pt has chronic low back pain. Pt denies any worsening pain or any loss of bladder control. Pt has knee pain Pt takes celebrex daily PRN for pain as well as norco PRN. Pt has chronic anxiety and depression. Pt takes Wellbutrin and zoloft and doing ok. Pt denies any suicidal or homicidal thought. Pt denies any crying spells. Pt denies any other complaints back pain1 Pt has low back pain. Pt has some sciatica. pt denies any worsening pain. Pt denies any loss of bladder control. Pt failed pain management. Pt is not surgical candidate. knee1 Pt had bilateral knee pain and she had bilateral knee replacement. Pt takes celebrex and doing ok. Pt denies any stomach upset anxiety1 Pt has chronic a nxiety and depression. Pt takes wellbutrin and zoloft and doing ok. Pt denies any suicidal or homicidal thought. Pt denies any crying spells heel pain1 Pt c/o right ach ilous tendon area pain for 3-4 weeks pt denies any injury pt states that the pain is sharp and seems worse in the morning pt denies any pain bottom of right foot. Pt denies any numbness pt denies any tingling. pt denies any calf pain Pt denies any recent travel or bedrest. Pt denies any sob tobacco1 Pt smokes 3-4 ci g per day and for 20 years Pt denies any sob back pain1 P thas chronic l ow back pain with right sciatica. Pt denies any worsening pain. Pt denies any loss of bladder control. Pt was evaluated by neurosurgery and was told no surgery for now. Pt takes norco and celebrex for pain control. Her pain is decently controlled. Pt tried to make appointment with pain management for injection but was unsuccessful due to conflict of schedule osteopenia1 Pt has osteopeni a. Pt takes calcium and vitamin D and is trying weight bearing exercise. colon polyp Pt recently had colonoscopy which showed hyperplastic colon polyp. Pt denies any GI bleeding, change in bowel habit HLP Pt has HLP. 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 Pt feels fatigue colon polyp1 Pt has colon aydee yp. Pt will have colonsocpy tomorrow anxiety1 Pt has chronic a nxiety and depression pt takes wellbutrin and zoloft and doing ok. pt denies any sucial or homicidal thought back pain1 Pt has chronic l ow back pain with right sciatica. Pt denies any worsening pain. pt denies any loss of bladder control. Pt just seen Dr. varner and was told no surgery needed and she should do epidural injection. Pt needs pain management referral. colon polyp1 Pt has history o f colon polyp. Pt needs colonoscopy but Dr. Lee is giving her the run around. Pt denies any Gi bleeding. or change in GI pattern back pain1 Pt has chronic l ow back pain with right sciatica Pt has right leg numbness. Pt had MRi doen which showed L4-5 and S1 nerve root impingement. Pt failed PT and she has rather severe pain on right side Pt denies any loss of bladder control HLP Pt has mild HLP. Pt is trying low fat and low carb diet osteopenia1 Pt has osteopeni a. Pt denies any h/o spontaneous fracture. physical Pt needs annual physical. Pt has chronic anxiety and depression Pt takes wellbutrin and also zoloft and doing ok. Pt denies any suicidal or homicidal thought. Pt denies any cyring spells. Pt takes vitamin D weekly. Pt is s/p bilateral knee replacement. Pt sees ortho and gets celebrex and norco for her knee and back pain. Pt also c/o chronic low back pain, worse since her knee replacement back in September of 2016. Pt has constant low back pain 7-8/10 and is sharp. Pt c/o bilateral sciatica and right upper lateral leg tingling. Pt denies any loss of bladder control. Pt denies any other complaints. Instructions Date Instruction Additional Infor mation Special diet education Related t o Body mass index (BMI) 33.0-33.9, adult Instructions given f or sinus irrigation. Related to Acute sinusitis Increase activity. Related to Hy perlipidemia Follow a low sodium diet. Relate d to Hyperlipidemia Special diet education Related t o Body mass index (BMI) 33.0-33.9, adult Special diet education Related t o Body mass index (BMI) 34.0-34.9, adult Increase physical activity Relat ed to Body mass index (BMI) 33.0-33.9, adult Weight management Related to Bod y mass index (BMI) 33.0-33.9, adult Special diet education Related t o Body mass index (BMI) 33.0-33.9, adult Special diet education Related t o Body mass index (BMI) 33.0-33.9, adult Special diet education Related t o Body mass index (BMI) 34.0-34.9, adult Special diet education Related t o Body mass index (BMI) 34.0-34.9, adult Prescribed dietary intake Relate d to Body mass index (BMI) 29.0-29.9, adult Quit smoking Related to Achil les bursitis of leg Quit smoking Related to Achil les bursitis of leg Quit smoking Related to Lumba go with sciatica, right side Prescribed diet education Relate d to Body mass index (BMI) 29.0-29.9, adult Prescribed dietary intake Relate d to Body mass index (BMI) 29.0-29.9, adult Prescribed Activity and Exercise Education Related to Dietary Surveillance and Counseling Prescribed Diet Educ ation/Lifestyle Education Regarding Diet Related to Dietary Surveillance and Counseling Increase physical activity Relat ed to Polyp of colon Quit smoking Related to Polyp of colon Weight management Related to Aydee yp of colon Quit smoking Related to Polyp of colon Increase physical activity Relat ed to Lumbago with sciatica, right side Quit smoking Related to Lumba go with sciatica, right side Weight management Related to Lum bago with sciatica, right side Prescribed Activity and Exercise Education Related to Dietary Surveillance and Counseling Prescribed Diet Educ ation/Lifestyle Education Regarding Diet Related to Dietary Surveillance and Counseling Prescribed Activity and Exercise Education Related to Dietary Surveillance and Counseling Prescribed Diet Educ ation/Lifestyle Education Regarding Diet Related to Dietary Surveillance and Counseling Assessments Type Assessment Date No Information
--- OUTSIDE RECORDS SUMMARY | 2024-10-26 07:18 | XMS_ITS | Encounter Summary ---
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 Gender Identity Not on file Sexual Orientation Not on file documented as of this encounter Plan of Treatment Not on file documented as of this encounter Procedures Procedure Name Priority Date/Time Associated Diagnosis Comments DERMATOPATHOLOGY Routine 12/24/2020 12:0 0 AM CDT documented in this encounter Results * DERMATOPATHOLOGY (12/24/2020 12:00 AM CDT) Case Report Dermatopathology Report Case: [id number] Authorizing Provider: Urbano Haider MD Collected: 12/24/2020 12:00 AM Ordering Location: [facility] Received: 12/26/2020 01:56 PM Pathologist: Carmina Sanchez MD Specimen: Skin, left mid pretibia 11:26 AM CDT DERMATOPATHOLOGY LABORATORY Final Diagnosis Specimen A. SKIN, left mid pretibia: SQUAMOUS CELL CARCINOMA, WELL DIFFERENTIATED (C44.729) 11:26 AM CDT DERMATOPATHOLOGY LABORATORY at 1126 CDT Clinical History R/O SCC. 11:26 AM CDT DERMATOPATHOLOGY LABORATORY Gross Description Specimen A: Received is one formalin filled container labeled with the patient's name and designated left mid pretibia. The specimen consists of a shave biopsy measuring [id number]. Jar 0. 11:26 AM CDT DERMATOPATHOLOGY LABORATORY Microscopic Description Specimen A. SKIN, left mid pretibia: Arising in the epidermis and extending into the dermis there are irregularly shaped aggregates of keratinocytes showing evidence of premature cornification. 11:26 AM CDT DERMATOPATHOLOGY LABORATORY Disclaimer An external and internal positive and negative controls are appropriate for the histochemical, immunohistochemical and immunofluorescence stain(s) in this case (if any), except where stated explicitly. The performance characteristics of the stain(s) cited in this report were developed and its performance characteristic determined by the Dermatopathology Laboratory at [facility], directed by Dr. Demetrius Villegas. These tests need not be, and therefore are not, approved by the [place] Food and Drug Administration. The tests are used for clinical purposes. Billing Codes Specimen Charges Stain Charges 19133 1 11:26 AM CDT DERMATOPATHOLOGY LABORATORY Embedded Images 11:26 AM CDT DERMATOPATHOLOGY LABORATORY Pathology/Cytolog y TISSUE SPECIMEN FROM SKIN / Unknown 12/24/2020 12/26/2020 1:56 PM CDT us Urbano Haiedr MD LAB - PATHOLOGY/CYTOLOGY ORD ERABLES Final Result DERMATOPATHOLOGY LABORATORY [facility] - Department of Dermatology [address] [place] [address], [facility] [phone] documented in this encounter Visit Diagnoses Not on filedocumented in this encounter
--- OUTSIDE RECORDS SUMMARY | 2024-10-26 07:18 | XMS_ITS | Clinical Summary ---
Author Organization [facility] Address [address] [place] [address] Care Team Providers Care Garage Door Technician Name Role Phone Unavailable Primary Care Provider Unavailabl e Source Comments [facility],non-owned Affiliates and Associated Physician Practices is amultiple site organization consisting of ambulatory clinics and hospital sitesin [place], [place] and [place]. This disclosure is being madepursuant to the Care Everywhere program and may not contain all information available regarding this patient. Last updated 18.[facility] Allergies No known active allergies Medications * Be aware that medications may not be up to date on this document. Alwaysverify current medications with the patient. glycopyrrolate (ROBINUL-FORTE) 2 MG tabletIndicatio ns:Hyperhidrosi s of face Take 1 Tab by mouth 2 times daily. 60 1 9 Active Additional Information Patient not taking.Reported on 03/01/2022 aluminum chloride (DRYSOL) 20 % solutionIndicat ions:Hyperhidro sis of face by Apply externally route daily. 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 Immunizations Immunization Administration Dates Next Due INFLUENZA VACCINE 02/04/2022 Family History Medical History Relation Name Comments CAD (Coronary Artery Disease) Mother Relation Name Status Comments Mother Social History Tobacco Use Types Packs/Day Years Used Date Smoking Tobacco: Some Days Smokeless Tobacco: Never Alcohol Use Standard Drinks/Week Comments Never 0 (1 standard drink = 0.6 oz pur e alcohol) Comments Unknown Sex and Gender Information Value Date Recorded Sex Assigned at Not on file 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 Gender Identity Not on file Sexual Orientation Not on file Last Filed Vital Signs Vital Sign Reading Time Taken Comments Blood Pressure 129/61 03/01/2022 10:50 AM CDT Pulse 64 03/01/2022 10:50 AM CDT Temperature 36.8 C (98.2 F) 03/01/2022 10:50 AM CDT Respiratory Rate 18 03/01/2022 10:50 AM CDT Oxygen Saturation 96% 03/01/2022 10:50 AM CDT Inhaled Oxygen Concentration - - Weight 80.7 kg (178 lb) 03/01/2022 10:50 AM CDT Height 154.9 cm (5' 1) 03/01/2022 10:50 AM CDT Body Mass Index 33.63 03/01/2022 10:50 AM CDT Plan of Treatment Health Maintenance Due Date Last Done Comments BONE DENSITY TESTING 1955 COLOGUARD (AGES 45-75) - COL ON CA SCREENING 1955 COLON MONITORING 1955 COLONOSCOPY - COLON CA SCREENING 1955 CT COLONOGRAPHY - COLON CA SCREENING 1955 Colorectal Cancer Screening 1955 FIT - COLON CA SCREENING 1955 FLEX SIG - COLON CA SCREENING 1955 MAMMOGRAM 1955 HEPATITIS C SCREENING 04/16/1973 DTAP/TDAP/TD VACCINES (1 - Tdap) 1974 PNEUMOCOCCAL VACCINE 50+ (1 of 2 - PCV) 1974 ZOSTER VACCINE (1 of 2) 2005 SCREENING FOR DIABETES 03/01/2022 COVID-19 VACCINE ( - 2023-2 5 season) 2024 DEPRESSION SCREENING 05/16/2024 MEDICARE AWV CALENDAR YEAR 2024 INFLUENZA VACCINE (Season Ended) 2025 02/05/20 Respiratory Syncytial Virus (RSV) Vaccine Pt: or over 60 yrs (1 - 1-dose 75+ series) 2030 HEPATITIS B VACCINE Aged Out No longe r eligible based on patient's age to complete this topic HIB VACCINE Aged Out No longer eligi ble based on patient's age to complete this topic HPV VACCINE Aged Out No longer eligi ble based on patient's age to complete this topic MENINGOCOCCAL (Group B) VACC INE SHARED DECISION-MAKING Aged Out No longer eligibl e based on patient's age to complete this topic MENINGOCOCCAL GROUPS A/C/Y/W VACCINE Aged Out No longer eligible b ased on patient's age to complete this topic Insurance
== END 2024-10-26 07:15 | disposition home or self-care (01) ==
LOC: ANHIMG 07:16
PROVIDERS: PCP Emergency Medicine; Visit Provider Emergency Medicine
DX: Z12.31 Encounter for screening mammogram for malignant neoplasm of breast (principal); R92.8 Other abnormal and inconclusive findings on diagnostic imaging of breast
CPT/HCPCS: 77063; 77067

== ENCOUNTER 2024-11-01 08:53 | Outpatient (CLI) | payer MEDICARE, SELFPAY ==
--- NOTE | ~2024-11-01 | XR_ITS ---
XR chest 2V Ordering provider: Gerald Paulino MD History: 69 years Female with . Centrilobular emphysema . Comparison: October 28, 2021 FINDINGS: MEDIASTINUM: The cardiac silhouette is slightly enlarged. LUNGS: No infiltrates, effusions or pneumothorax. OTHER: No free air under the diaphragm. Degenerative changes of the spine. IMPRESSION: No acute cardiopulmonary pathology. Reviewed, dictated and finalized at location A.
== END 2024-11-01 08:54 | disposition home or self-care (01) ==
LOC: MICIMG 08:54
PROVIDERS: PCP Emergency Medicine; Visit Provider Emergency Medicine
DX: J43.2 Centrilobular emphysema (principal)
CPT/HCPCS: 71046

== ENCOUNTER 2024-11-02 11:27 | Outpatient (CLI) | payer MEDICARE, SELFPAY ==
--- NOTE | ~2024-11-02 | DEXA_ITS ---
Bone Density Report Name: ELKE GUADARRAMA Age: 69 Sex: Female Ethnicity: White Date of : 1955 Indication: osteopenia; prior fracture; hysterectomy; Referring Provider: JAKE COCHRAN Study: Bone densitometry was performed. Exam Date: November 02, 2024 Accession number: [id number] Bone Density: Region BMD T-score Z-score Classification AP Spine(L1-L4) 0.947 -0.9 1.2 Normal Femoral Neck (Left) 0.701 -1.3 0.4 Osteopenia Total Hip (Left) 0.826 -1.0 0.5 Normal Femoral Neck (Right) 0.671 -1.6 0.2 Osteopenia Total Hip (Right) 0.826 -0.9 0.5 Normal Total Hip Mean 0.826 -1.0 0.5 Normal World Health Organization criteria for BMD impression classify patients as: Normal (T-score at or above -1.0), Osteopenia (T-score between -1.0 and -2.5), or Osteoporosis (T-score at or below -2.5). 10-year Fracture Risk(1): Major Osteoporotic Fracture 15% Hip Fracture 3.5% Reported Risk Factors: [place] (), Neck BMD=0.671, BMI=34.4, previous fracture, smoking (1) FRAX(R) Version 3.08. Fracture probability calculated for an untreated patient. Fracture probability may be lower if the patient has received treatment. Previous Exams: -- Region Exam Age BMD T-score BMD Change BMD Change Date g/cm2 vs Baseline vs Previous -- AP Spine (L1-L4) 11/02/2024 69 0.947 -0.9 -4.8%# 6.0%* 05/03/2019 64 0.894 -1.4 -10.1%# 1.5% 03/11/2017 61 0.880 -1.5 -11.5%# -2.8%* 02/07/2009 53 0.905 -1.3 -9.0%# -0.6% 06/26/2007 52 0.911 -1.2 -8.4%# -8.4%# 01/13/2004 48 0.995 -0.5 Total Hip(Left) 11/02/2024 69 0.826 -1.0 -14.0%# -0.3% 05/03/2019 64 0.829 -0.9 -13.7%# 3.3% 03/11/2017 61 0.803 -1.1 -16.4%# -4.6%* 02/07/2009 53 0.842 -0.8 -12.4%# -8.0%* 06/26/2007 52 0.915 -0.2 -4.8%# -4.8%# 01/13/2004 48 0.960 0.2 Total Hip(Right) 11/02/2024 69 0.826 -0.9 -7.2%# 9.8%* 05/03/2019 64 0.753 -1.6 -15.5%# 4.4%* 03/11/2017 61 0.721 -1.8 -19.1%# -17.0%* 02/07/2009 53 0.869 -0.6 -2.4%# 9.7%* 06/26/2007 52 0.792 -1.2 -11.1%# -11.1%# 01/13/2004 48 0.891 -0.4 -- *Denotes significance at 95% confidence level, LSC for AP Spine = 0.022 g/cm2, LSC for Total Hip = 0.027 g/cm2 # Denotes dissimilar scan types or analysis methods Clinical Information Provided by Patient: Has had a low trauma fracture Smokes Has used the following medications: Vitamin D Has the following medical conditions: Hysterectomy Patient maximum height was 62 Menopause Age: 46 No regular weight bearing exercise Drinks caffeinated beverages Onset of menses at age 12 Number of children 2 Missed period for more than 6 months in a row Impression: The patient has low bone mass, based on the Right Femoral Neck T-score. The patient has an estimated ten-year risk of hip fracture of 3.5% and an estimated ten-year risk of major fracture of 15%, based on the WHO FRAX algorithm. The patient has risk factors, including: smoking, previous fracture. No significant bone loss was observed. Discussion: BONE DENSITY IS LOW AT ONE OR MORE SKELETAL SITES. THE PATIENT'S BMD AND CLINICAL RISK FACTORS CONTRIBUTE TO THIS PATIENT'S INCREASED RISK OF FRACTURE. This patient's lowest T-score is low at one or more skeletal sites. It meets the World Health Organization's (WHO) criteria for ?low bone mass? (T-score between -1.0 and -2.5). The patient's 10-year risk of hip fracture as calculated by FRAX exceeds the threshold where pharmacological therapy is recommended by the National Osteoporosis Foundation (NOF). However, all treatment decisions require clinical judgment and consideration of individual patient factors, including patient preferences, comorbidities, previous drug use, risk factors not captured in the FRAX model (e.g., frailty, falls, vitamin D deficiency, increased bone turnover, interval significant decline in bone density) and possible under or overestimation of fracture risk by FRAX. The patient should follow a healthful lifestyle (good nutrition with adequate calcium and vitamin D, and appropriate weight-bearing exercise). Follow-Up: Consider a repeat BMD and Vertebral Fracture Assessment (VFA) exam in 2 years or sooner if medically necessary, to reassess this patient's status. Reported by: LAURI on 11/05/2024 2:06:00 PM. Reviewed, dictated and finalized at location A.
== END 2024-11-02 11:28 | disposition home or self-care (01) ==
LOC: MICIMG 11:27
PROVIDERS: PCP Emergency Medicine; Visit Provider Emergency Medicine
DX: M85.852 Other specified disorders of bone density and structure, left thigh (principal); M85.851 Other specified disorders of bone density and structure, right thigh; Z78.0 Asymptomatic menopausal state
CPT/HCPCS: 77080

== ENCOUNTER 2024-11-23 08:49 | Outpatient (CLI) | payer MEDICARE, SELFPAY ==
--- NOTE | ~2024-11-23 | MM_ITS ---
EXAMINATION: MM diagnostic chon RT w simba HISTORY: Right breast microcalcifications TECHNIQUE: Additional spot magnification images of the right breast were performed and synthetic 2-D images were generated. CAD analysis was submitted and interpreted. COMPARISON: 10/26/2024, 07/28/2022 BREAST PARENCHYMAL COMPOSITION:Not Dense. There are scattered areas of fibroglandular density. FINDINGS: Spot magnification views demonstrate a loose grouping of tiny and amorphous microcalcificat ions at the lower, inner right breast. These are probably benign. No overtly suspicious calcification s are seen. No associated mass lesion or distortion. IMPRESSION: Amorphous and indistinct probably benign microcalcifications at the lower, inner right breast. Six-mo nth follow-up exam recommended to reassess. BI-RADS category 3, probably benign findings. Reviewed, dictated and finalized at location . IMPRESSION: Amorphous and indistinct probably benign microcalcifications at the lower, inne r right breast. Six-month follow-up exam recommended to reassess. BI-RADS category 3, probably benign findings.
== END 2024-11-23 08:50 | disposition home or self-care (01) ==
LOC: MICIMG 08:50
PROVIDERS: PCP Emergency Medicine; Visit Provider Emergency Medicine
DX: N63.10 Unspecified lump in the right breast, unspecified quadrant (principal); R92.8 Other abnormal and inconclusive findings on diagnostic imaging of breast
CPT/HCPCS: 77061; 77065; G0279